=== PATIENT | female | born 1940 | race Caucasian/White ===

== ENCOUNTER 2019-01-31 10:59 | Emergency (ER) | payer OTHER ==
[~2019-01-31] VITALS: Ht 170.2 cm; Wt 77.1 kg
--- NOTE | 2019-01-31 11:00 | NUR ---
Patient arrived via BLS ambulance with compliant of HTN and burning neck pain. Reports that she was recently admitted to [facility] 01/27/19 after a box fell on her head and recieved a workup for head and neck pain, during this admission she refused MRI as they only had a closed MRI. She was scheduled to follow up with [facility] for open MRI. Patient to ER bed 6 to gown for evaluation. Side rails up. Report given to Andi MORALEZ.
--- NOTE | 2019-01-31 11:02 | NUR ---
LYDIA Echols at bedside examining patient.
[2019-01-31 11:05] VITALS: BP_SYST 160
--- NOTE | 2019-01-31 11:10 | NUR ---
Medical record release form faxed to [facility] to obtain CT head and neck.
[2019-01-31] MEDS ORDERED: ALPRAZolam 0.25 MG TABLET PO ONE (11:15)
--- NOTE | 2019-01-31 12:30 | NUR ---
IVF given for patine hydration. No acute distress noted
[2019-01-31] MEDS ORDERED: NACL 0.9% 1,000 ML IV ONE (13:00)
--- NOTE | 2019-01-31 13:40 | NUR ---
Pt reports anxiety resolving.
--- NOTE | 2019-01-31 15:32 | NUR ---
Patient ambulated to bathrrom with minimal assistance. Patient reports severe dizziness, however she ambulated safely with much profanity to the bathroom.
[2019-01-31 16:15] VITALS: BP_SYST 134
--- NOTE | 2019-01-31 16:15 | NUR ---
Patient given written and verbal discharge instructions and verbalizes understanding. ER MD discussed with patient the results and treatment provided. Patient in stable condition. ID arm band removed. IV catheter removed intact and dressing applied, no active bleeding. No Rx given. Patient educated on pain management and to follow up with PMD. Pain Scale 2. Opportunity for questions provided and answered. Medication side effect fact sheet provided.
== END 2019-01-31 16:15 | disposition home or self-care (01) ==
LOC: SED 10:59
DX: F41.9 Anxiety disorder, unspecified (principal); I10 Essential (primary) hypertension; Z88.1 Allergy status to other antibiotic agents; Z86.79 Personal history of other diseases of the circulatory system
CPT/HCPCS: 99284; J7030